=== PATIENT | male | born 1980 | race Caucasian/White ===

== ENCOUNTER 2018-01-04 08:44 | Day surgery (SDC) | payer OTHER ==
[~2018-01-04 08:44] MED LIST: ANCEF/STERILE WATER 2 GM/20 ML IV NR; LACTATED RINGERS 1,000 ML IV SCH; MARCAINE 0.5% INFILTRATI ONE; VERSED IV NR
[2018-01-04] MEDS ORDERED: NACL BACTERIOSTATIC INFILTRATI ONE (09:05)
--- NOTE | 2018-01-04 09:13 | Anesthesia Consultation ---
Anesthesia Consult and Med Hx Date of service: 01/04/18 - Airway Anesthetic Teeth Evaluation: Good ROM Head & Neck: Adequate Mental/Hyoid Distance: Adequate Mallampati Class: Class II Intubation Access Assessment: Probably Good - Pulmonary Exam CTA: Yes - Cardiac Exam Cardiac Exam: RRR - Pre-Operative Health Status ASA Pre-Surgery Classification: ASA2 Proposed Anesthetic Plan: General - Pulmonary Hx Smoking: Yes (1/2 CIG/WEEK) Hx Respiratory Symptoms: Yes (nonproductive morning cough) - Cardiovascular System Hx Hypertension: Yes - Central Nervous System Hx Neuromuscular Disorder: No Hx Psychiatric Problems: No - Gastrointestinal Hx Ulcer: No Hx Gastroesophageal Reflux Disease: No - Endocrine Hx Renal Disease: No - Hematic Hx Anemia: No - Other Systems Hx Alcohol Use: Yes (BEER OCCS) Hx Substance Use: No Hx Obesity: Yes - Additional Comments Anesthesia Medical History Comments: No previous anesthetic, No FHAC
[2018-01-04] MEDS ORDERED: MARCAINE 0.5% 30 ML INFILTRATI ONE (09:59)
[2018-01-04] MEDS ORDERED: DIPRIVAN 10 MG/ML IV ONE (10:04)
[2018-01-04] MEDS ORDERED: XYLOCAINE MPF 2% ONE (10:04)
[2018-01-04] MEDS ORDERED: DILAUDID ONE (10:17)
[2018-01-04] MEDS ORDERED: ZOFRAN ONE (10:25)
[2018-01-04] MEDS ORDERED: DECADRON ONE (10:25)
[2018-01-04] MEDS ORDERED: DILAUDID IV PRN (11:52)
[2018-01-04] MEDS ORDERED: TORADOL IV PRN (11:52)
[2018-01-04] MEDS ORDERED: ZOFRAN IV PRN (11:52)
--- NOTE | 2018-01-04 11:53 | Anesthesia Day of Surgery ---
Anesthesia Day of Surgery - Day of Surgery Patient Examined: Yes Patient H&P Reviewed: Yes Patient is NPO: Yes
[2018-01-04] MEDS ORDERED: MARCAINE 0.5% INFILTRATI ONE (12:19)
[2018-01-04] MEDS ORDERED: NACL 0.9% 1000 ML 1,000 ML ONE (12:21)
--- NOTE | 2018-01-04 12:39 | Post Operative Note ---
Pre-op diagnosis: Left groin lipoma Post-op diagnosis: same Findings: Large Lipoma, 10 inches diameter Procedure: Lipoma excision Anesthesia: MAC, local Surgeon: JASMINE BHARDWAJ Estimated blood loss: other (400) Pathology: list Specimen disposition: to lab Condition: stable Disposition: PACU
[2018-01-04] MEDS ORDERED: DEMEROL ONE (12:43)
[2018-01-04] MEDS ORDERED: DEMEROL IV PRN (12:50)
[2018-01-04 13:55] VITALS: BP 120/70
--- NOTE | 2018-01-04 16:45 | Operative Report ---
PREOPERATIVE DIAGNOSIS: Left groin lipoma. POSTOPERATIVE DIAGNOSIS: Left groin lipoma. PROCEDURE: Excision of left groin lipoma. The lipoma diameter is approximately 10 inches x 10 inches which should come to about 23 cm in diameter. ANESTHESIA: Local and MAC. ESTIMATED BLOOD LOSS: 400 mL. INDICATIONS FOR PROCEDURE: The patient is a 37-year-old male patient who presented with an expanding left groin mass for the past few years. He says it has become a nuisance because the mass has been growing and has become cosmetically unacceptable as well as causing occasional pain and discomfort. We proceeded to explain to the patient the procedure as well as all the possible complications including but not limited to infection, bleeding and recurrence of the condition. The patient accepted the terms and signed informed consent, which was stored in the chart. PROCEDURE IN DETAIL: The patient was taken back to the OR where he was placed supine on the operating room table. Bilateral lower extremity compression devices were placed and a dose of perioperative antibiotics was given. The patient's left groin was exposed and cleaned. He was prepped and draped as per the usual sterile fashion. At this point, a timeout was taken to verify the correct patient, the correct procedure. Once everybody in the room was in agreement, we began the procedure by injecting local anesthetic at the proposed incision site. This was followed by incision with a size 10 blade. This was carried down through the skin and subcutaneous tissue all the way down through the subcutaneous fat and down to the mass itself, which was seen immediately below the subcutaneous layer and it was seen to be encased in a capsule of its own. Further dissection was carried in a 360 degree fashion around the mass inferiorly, superiorly, medially, and upon lateral dissection, the mass was seen to be closely associated with the greater saphenous vein as well as the femoral vein. Care was taken to dissect the structures away from the mass and upon our continued dissection, we were able to eviscerate the mass from the surrounding soft tissues. During the evisceration a cluster of small tributaries to the femoral vein appeared to be ripped and had some profuse bleeding. Immediately, we proceeded to excise the mass as fast as we could in order to clear space for adequate visualization of the injuries. Pressure was held during this process to prevent the patient from bleeding. Once the mass was out and from the operating field, we proceeded to expose the bleeding vessels. It was found to have a very small arterial bleed from the remnants of the mass. This was tied off and excised and a larger more significant bleeding from femoral vein tributaries from the mass itself. This was taken care of with a hemostat and a 3-0 silk tie, this stopped the bleeding. Any residue of the mass was excised at this point and the area was irrigated until clear. Joan hemostatic powder was also used to ensure no oozing from the muscle layers would contribute to any postop bleed. At this point, we began the closure, which was done with a 3-0 Vicryl in the deeper layers followed by 4-0 Vicryl at the skin level and interrupted sutures and Dermabond to finalize skin closure. The patient tolerated the procedure well and remained stable throughout the entire procedure. He was sent to the PACU unit for further recovery. JOB# [id number] [place]
== END 2018-01-04 13:42 | disposition home or self-care (01) ==
LOC: OR 08:44
PROVIDERS: ATTEND Surgery
DX: D17.24 Benign lipomatous neoplasm of skin and subcutaneous tissue of left leg (principal); I10 Essential (primary) hypertension; F17.210 Nicotine dependence, cigarettes, uncomplicated; E66.9 Obesity, unspecified; Z68.35 Body mass index [BMI] 35.0-35.9, adult
CPT/HCPCS: 27043; 88307; 88342; J0690; J1100; J1170; J2175; J2250; J2405; J2704; J7030; J7120